=== PATIENT | female | born 1990 | race African-American/Black ===

== ENCOUNTER → 2017-02-05 | Outpatient (CLI) | payer BC ==
[~2017-02-05] MED LIST: DOXY100C PO; HYDR-3516 PO; METH-703 PO
[2017-02-05 11:12] LABS: HEMATOCRIT 29.7 % (35.0-46.0); MEAN CELL VOLUME 71.1 FL (80.0-100.0); MEAN CORPUSCULAR HEMOGLOBIN 22.7 PG (27.0-34.0); PLATELET COUNT 178 TH/MM3 (150-450); RED BLOOD COUNT 4.18 MIL/MM3 (4.00-5.30); RED CELL DISTRIBUTION WIDTH 14.9 % (11.6-17.2); WHITE BLOOD COUNT 3.7 TH/MM3 (4.0-11.0)
[2017-02-05 11:17] LABS: REVIEW FLAG FINAL
== END ==
LOC: CPRE 10:30 → EDUNIT# 11:00
PROVIDERS: ATTEND Obstetrics & Gynecology
DX: Z01.812 Encounter for preprocedural laboratory examination (principal)
CPT/HCPCS: 36415; 85027; 86900; 86901

== ENCOUNTER → 2017-02-06 | Day surgery (SDC) | payer BC ==
[~2017-02-06] VITALS: Ht 172.7 cm; Wt 62.5 kg
[~2017-02-06] MED LIST changes: +ACETAMINOPHEN/HYDROcodone 325 MG/5 MG TAB ONE; +ACETAMINOPHEN/HYDROcodone 325 MG/5 MG TAB PO PRN; +CHLORHEXIDINE GLUCONATE 2 % 1 PACK (2 CLOTHS) TOPICAL PRN; +INSULIN HUMAN REGULAR 1,000 UNITS/10 ML VIAL SQ PRN; +KETOROLAC TROMETHAMINE 60 MG/2 ML (IM) VIAL IM ONE; +LACTATED RINGER'S 1000 ML INJ 1,000 ML IV ONE; +LACTATED RINGER'S 1000 ML IV PRN; +MIDAZOLAM HCL 2 MG/2 ML VIAL ONE; +ONDANSETRON HCL 4 MG/2 ML VIAL IV PUSH ONE; +POVIDONE IODINE 5% (ANTISEPSIS KIT) 4 APPLICATIONS EACH NARE PRN; +PROPOFOL 200 MG/20 ML AMP IV ONE; +SODIUM CHLORID 0.9% 500 ML IV PRN
[2017-02-06 14:52] VITALS: BP 98/59; PULSE 59; RESP 18; TEMP 97.7; O2SAT 100
--- NOTE | 2017-02-11 14:47 | MP ---
cc: Hernandez AMBRIZ MD DATE OF SURGERY: 02/06/2017 PREOPERATIVE DIAGNOSIS Missed at 8 weeks. POSTOPERATIVE DIAGNOSIS Missed at 8 weeks. PROCEDURE Dilation, evacuation of the uterus. ANESTHESIA General. SURGEON Hernandez Ambriz MD FINDINGS The uterus was 12 weeks' size, no adnexal masses. The cervix was closed. The POC looked normal grossly and was sent for pathology. COMPLICATIONS None. COUNTS Counts were correct. ESTIMATED BLOOD LOSS 200 ccs. FLUIDS Crystalloids. CONDITION The patient tolerated the procedure well and went to the recovery room in good condition. PROCEDURE IN DETAIL The patient was taken to the operating room, identified by name band and verbally and given a general anesthetic. She was prepped and draped in the dorsal lithotomy position for a routine vaginal surgery. The urinary bladder was drained and examination under anesthesia was carried out after she was prepped and draped. Once the exam was done the weighted speculum was placed in the vagina. The anterior lip of the cervix was grasped with a single-tooth tenaculum. The cervix was serially dilated up to 8 mm and a suction cannula was then placed into the uterus. The entire uterus contents were removed under gentle suction and that was followed by a sharp curettage. She tolerated the procedure well. All instruments were removed. She went to the recovery room in good condition. She did receive Ketorolac in the operating theater. Hernandez Ambriz MD RJV/TLL /11:26 AM /2:29 PM
== END | disposition home or self-care (01) ==
LOC: HSDC 10:46
PROVIDERS: ATTEND Obstetrics & Gynecology
DX: O02.1 Missed abortion (principal); Z3A.08 8 weeks gestation of pregnancy; J45.909 Unspecified asthma, uncomplicated; G43.909 Migraine, unspecified, not intractable, without status migrainosus; Z87.891 Personal history of nicotine dependence
CPT/HCPCS: 01965; 36415; 59820; 85027; 86900; 86901; 88305; J1885; J2250; J2405; J3010; J7120

== ENCOUNTER 2017-02-12 04:28 | Observation (INO) | payer BC, MEDICAID ==
[~2017-02-12] VITALS: Ht 172.7 cm; Wt 64.7 kg
[2017-02-12] VITALS (12 sets, daily range): BP systolic 99–152; BP diastolic 56–84; PULSE 50–86; RESP 14–18; TEMP 97.7–99.1; O2SAT 98–100
[2017-02-12] MEDS ORDERED: HYDR-3516 PO (04:55)
--- NOTE | 2017-02-12 05:06 | PD ---
HPI Chief Complaint: Abdominal Pain Time Seen by Provider: 05:06 Travel History International Travel<30 days: No Contact w/Intl Traveler<30days: No Traveled to known affect area: No History of Present Illness HPI 26-year-old female presents to the emergency department from [facility] for evaluation of vaginal bleeding 5 days post a D&C performed at [facility] by her COMMERCIAL LENDING ASSISTANT Dr Ambriz this past Thursday. Patient has had suprapubic pain and right lower quadrant pain. Patient reportedly had a temperature elevation of 102F yesterday she's had some nausea and vomiting. Patient has been passing blood vaginally with blood clots states that she has been changing sanitary pads approximate 2 every hour. Patient has had some constipation she thinks related to her pain medication. Patient underwent CT abdomen and pelvis that identified a normal appendix; small amount of free fluid in the pelvis; distended uterine cavity with complex material measuring up to 4.8 cm could be secondary to retained trap debris/blood products however retained products of conception cannot because completely ruled out. Patient also went pelvic ultrasound that identified persistently thickened heterogeneous endometrium measuring 37 millimeters with recent miscarriage at 12 weeks thickened heterogeneous attenuation without significant internal vascularity was consistent with extensive blood product and hematoma small amount of free fluid in the cul-de-sac. Patient's total white cell count was 5500 however her hemoglobin was 7.7 this was reportedly down from pre-procedure hemoglobin of 10.5. Due to ongoing bleeding and drop in hemoglobin patient did undergo transfusion of 1 unit of packed red cells, patient's die repairer forging was contacted for transfer to [place] for ongoing management and intervention. PFSH Past Medical History Narrative Medical Lupus D&C1 ab1; no tobacco; nursing notes reviewed Cancer: No Diabetes: No Endocrine: No Hepatitis: No Immune Disorder: No Medical other: Yes (lupus) Psychiatric: No Thyroid Disease: No Tetanus Vaccination: Unknown ?: Unknown Past Surgical History AICD: No Gynecologic Surgery: Yes (DNC one week ago) Joint Replacement: No Pacemaker: No Social History Alcohol Use: No Tobacco Use: No Substance Use: No Allergies-Medications (Allergen,Severity, Reaction): Coded Allergies: No Known Allergies (Unverified , 02/12/17) Reported Meds & Prescriptions Reported Meds & Active Scripts Active Reported Hydrocodone-Acetaminophen 5-325 mg Tab 1 Tab PO Q4H PRN Review of Systems Except as stated in HPI: all other systems reviewed are Neg General / Constitutional: Positive: Fever (102 ) HENT: No: Headaches Cardiovascular: No: Chest Pain or Discomfort Respiratory: No: Shortness of Breath Gastrointestinal: Positive: Abdominal Pain Genitourinary: Positive: Vaginal Bleeding Musculoskeletal: No: Pain Skin: No Rash Neurologic: No: Tremor Hematologic/Lymphatic: No: Lymph Node Enlargement Physical Exam Narrative GENERAL: Well-developed well-nourished female in no acute distress no respiratory distress; temperature 98.4F heart rate 62 monitored sinus rhythm respiratory rate 14 unlabored blood pressure 136/81 and room air O2 saturation 100% SKIN: Warm and dry. HEAD: Normocephalic. EYES: No scleral icterus. No injection or drainage. NECK: Supple, trachea midline. No JVD or lymphadenopathy. CARDIOVASCULAR: Regular rate and rhythm without murmurs, gallops, or rubs. RESPIRATORY: Breath sounds equal bilaterally. No accessory muscle use. GASTROINTESTINAL: Abdomen soft, suprapubic and right lower quadrant tenderness to palpation without guarding or rebound nondistended. Pelvic exam small amount of blood at the introitus speculum exam shows clotted blood; bimanual exam deferred MUSCULOSKELETAL: No cyanosis, or edema. BACK: Nontender without obvious deformity. No CVA tenderness. Data Data Last Documented VS Vital Signs Date Time Temp Pulse Resp B/P (MAP) Pulse Ox O2 Delivery O2 Flow Rate FiO2 02/12/17 04:40 98.4 62 14 136/81 (99) 100 Orders Orders NPO (02/12/17 05:06) Complete Blood Count With Diff (02/12/17 05:06) Act Partial Throm Time (Ptt) (02/12/17 05:06) Prothrombin Time / Inr (Pt) (02/12/17 05:06) Type And Screen (02/12/17 05:06) Red Blood Cells (Rbc) (02/12/17 05:06) Blood Product Administration (02/12/17 05:06) Sodium Chlor 0.9% 250 Ml Inj (Ns 250 Ml (02/12/17 05:15) Sodium Chlor 0.9% 1000 Ml Inj (Ns 1000 M (02/12/17 05:15) Labs Laboratory Tests Test 02/12/17 05:15 White Blood Count 5.6 TH/MM3 Red Blood Count 3.76 MIL/MM3 Hemoglobin 9.0 GM/DL Hematocrit 27.2 % Mean Corpuscular Volume 72.3 FL Mean Corpuscular Hemoglobin 23.9 PG Mean Corpuscular Hemoglobin Concent 33.0 % Red Cell Distribution Width 16.3 % Platelet Count 166 TH/MM3 Mean Platelet Volume 9.7 FL Neutrophils (%) (Auto) 73.9 % Lymphocytes (%) (Auto) 19.6 % Monocytes (%) (Auto) 5.9 % Eosinophils (%) (Auto) 0.2 % Basophils (%) (Auto) 0.4 % Neutrophils # (Auto) 4.1 TH/MM3 Lymphocytes # (Auto) 1.1 TH/MM3 Monocytes # (Auto) 0.3 TH/MM3 Eosinophils # (Auto) 0.0 TH/MM3 Basophils # (Auto) 0.0 TH/MM3 CBC Comment AUTO DIFF Prothrombin Time 10.4 SEC Prothromb Time International Ratio 0.9 RATIO Activated Partial Thromboplast Time 28.9 SEC MDM Medical Decision Making Medical Screen Exam Complete: Yes Emergency Medical Condition: Yes Medical Record Reviewed: Yes (02/05/17 hemoglobin 9.5) Interpretation(s) CBC & BMP Diagram 02/12/17 05:15 Vital Signs Date Time Temp Pulse Resp B/P (MAP) Pulse Ox O2 Delivery O2 Flow Rate FiO2 02/12/17 04:40 98.4 62 14 136/81 (99) 100 Differential Diagnosis Anemia retained products of conception Narrative Course 26-year-old female presents with ongoing vaginal bleeding anemia and enlarged uterus with possible retained hematoma versus products of conception patient was transferred from [facility] to her excepting managing physician Dr. Ambriz patient has received one unit of packed red cells for hemoglobin of 7.7 Physician Communication Physician Communication call placed to Dr Ambriz --discussed with Dr Cody--to Dr Ambriz Diagnosis Primary Impression: Vaginal bleeding Additional Impression: Anemia Admitting Information Admitting Physician Requests: Frances Ruffin MD Feb 12, 2017 05:06
[2017-02-12 05:22] LABS: AUTOMATED NEUTROPHIL # 4.1 TH/MM3 (1.8-7.7); BASOPHIL % 0.4 % (0.0-2.0); EOSINOPHIL % 0.2 % (0.0-4.0); HEMATOCRIT 27.2 % (35.0-46.0); LYMPH % 19.6 % (9.0-44.0); LYMPHOCYTE # 1.1 TH/MM3 (1.0-4.8); MEAN CELL VOLUME 72.3 FL (80.0-100.0); MEAN CORPUSCULAR HEMOGLOBIN 23.9 PG (27.0-34.0); MONO % 5.9 % (0.0-8.0); NEUT % 73.9 % (16.0-70.0); PLATELET COUNT 166 TH/MM3 (150-450); RED BLOOD COUNT 3.76 MIL/MM3 (4.00-5.30); RED CELL DISTRIBUTION WIDTH 16.3 % (11.6-17.2); WHITE BLOOD COUNT 5.6 TH/MM3 (4.0-11.0)
[2017-02-12 05:27] LABS: HEMO FLAGS AUTO DIFF
[2017-02-12 05:34] LABS: APTT (PATIENT) 28.9 SEC (24.3-30.1); INTERNATIONAL NORMALIZED RATIO 0.9 RATIO; PROTHROMBIN TIME - PATIENT 10.4 SEC (9.8-11.6)
[2017-02-12] MEDS ORDERED: SODIUM CHLORIDE 0.9% FLUSH 10 ML FLUSH IVF PRN (05:45)
[2017-02-12 06:12] LABS: ACANTHOCYTES OCC (NORMAL); KERATOCYTES OCC (NORMAL); OVALOCYTES 2+ (NORMAL); PLATELET ESTIMATE SMEAR NORMAL (NORMAL); PLATELET MORPHOLOGY NORMAL (NORMAL); SCAN/DIFF AUTO DIFF CONFIRMED
[2017-02-12] MEDS: SODIUM CHLOR 0.9% 1000 ML INJ 1,000 ML IV SCH (07:17)
[2017-02-12] MEDS: SODIUM CHLORIDE 0.9% FLUSH 10 ML FLUSH IV FLUSH SCH (07:18)
[2017-02-12] MEDS: SODIUM CHLOR 0.9% 250 ML INJ 250 ML IV ONE ×2 (07:28→09:11)
[2017-02-12] MEDS: LACTATED RINGER'S 1000 ML INJ 1,000 ML IV SCH ×2 (07:53→12:04)
[2017-02-12] MEDS: ONDANSETRON HCL 4 MG/2 ML VIAL IV PUSH PRN ×2 (07:58→23:52)
[2017-02-12] MEDS ORDERED: HYDROmorphone HCL PF 1 MG/ML VIAL IV PUSH PRN (08:00)
[2017-02-12] MEDS: BISACODYL 10 MG SUPP RECTAL SCH ×2 (08:00→21:00)
[2017-02-12] MEDS ORDERED: MISOPROSTOL 200 MCG TAB PO ONE ×2 (08:00→18:00)
--- NOTE | 2017-02-12 08:31 | MH ---
cc: Hernandez MORELOS MD DATE OF ADMISSION: 02/12/2017 HISTORY OF PRESENT ILLNESS Ms. Tirado is an 26-year-old black female, para 0-0-2-0, who came to the office for OB care. She was seen on and noted to have intrauterine demise at approximately 8 weeks. She was taken to the operating room the next day and had an uneventful dilation, evacuation of the uterus without any complications. She had a temperature of 102 yesterday and then began passing large amounts of blood and clots. She was changing a pad every 2 hours. Her hemoglobin dropped from 10 to 7 and she went to the emergency room in [place] where she underwent a CT of the abdomen and pelvis and ultrasound and got 1 unit of blood. They then called me and I recommended transfer here, so I could take care of her. She has not had further fever or chills but she has been experiencing some nausea, vomiting and increasing pain. PAST OB HISTORY She is para 0-0-2-0. She had one SAB, one TAB and she had a D&E last Thursday, so she is 3. PAST MEDICAL HISTORY Her past medical history is remarkable for: 1. Asthma. 2. Migraines and headache. PAST SURGICAL HISTORY Her past surgical history is remarkable for D&C x 2. MEDICATION Her current medications are [place] 5/325 one p.o. q.4 hours p.r.n. pain. ALLERGIES No known drug allergies. SOCIAL HISTORY She does not smoke, drink or take drugs. REVIEW OF SYSTEMS GENERAL: She has had some fever yesterday, no further fevers or chills. HEENT: No headaches, no visual changes. CARDIOVASCULAR: No chest pain. No discomfort. RESPIRATORY: No shortness of breath. No wheezing. GI: She has constipation and nausea and vomiting. : She has moderate vaginal bleeding. The bleeding is minimal now. MUSCULOSKELETAL: No pain. No joint pain. PHYSICAL EXAMINATION GENERAL: A well-developed, well-nourished female who looks mildly ill. VITAL SIGNS: Her temperature is 98.4, heart rate is 62. Respirations are 14. Her blood pressure is 136/81. Her O2 sat is 100 on room air. HENT: Normocephalic, atraumatic. NECK: Supple. Trachea is in the midline. No thyromegaly or adenopathy. EYES: No icterus. HEART: Heart has a regular rate and rhythm without murmur or gallop. RESPIRATORY: Breath sounds are equal bilaterally. LUNGS: The lungs are clear. She has good air movement. ABDOMEN: Her abdomen is soft and suprapubically she is slightly warm and tender. There is no guarding. There is no rebound. PELVIC: There is a small amount of bleeding. The bimanual reveals mildly tender uterus which feels globular. MUSCULOSKELETAL: She has no clubbing, cyanosis or edema. LABORATORY DATA Her laboratory workup reveals a white count of 5.6, hemoglobin of 9, hematocrit 27.2. IMAGING STUDIES Her CT scan, I have reviewed personally, reveals that she does have some tissue versus hematoma of the uterus. ASSESSMENT/PLAN 1. Postabortal endometritis with hematometra. I would go ahead and admit her to the hospital, give her some IV fluids, take care of her nausea and pain with medication. I will give her a dose of Cytotec to see if we can get the blood products out of her uterus. She does have asthma but it is very mild and lungs right now are extremely clear with good air movement, I do not expect any problems. 2. Constipation. Will go ahead and give her some Dulcolax suppositories. 3. Acute blood loss anemia status post a dilation and evacuation. Will go ahead and give her one more unit of blood and I expect that she is going to have a little bit more bleeding as we clean this out. I discussed this plan with the patient and her significant other that is with her. R. MD JANA Malik/JUSTINO /7:45 AM /7:57 AM
[2017-02-12] MEDS ORDERED: cefTRIAXone INJ 1,000 MG in SODIUM CHLORIDE 0.9% INJ 100 ML IV ONE (09:00)
--- NOTE | 2017-02-12 17:46 | HHI.PR ---
Subjective Remarks Pain and bleeding are better. Feeling better. No BM yet. Objective Vital Signs Date Time Temp Pulse Resp B/P (MAP) Pulse Ox O2 Delivery O2 Flow Rate FiO2 02/12/17 13:26 103/59 (74) 02/12/17 11:49 98.7 50 16 104/63 98 02/12/17 09:53 98.7 50 16 107/64 100 02/12/17 09:35 98.0 56 16 99/58 (72) 100 02/12/17 09:20 98.0 54 16 100/56 100 02/12/17 09:05 98.1 58 16 104/59 100 02/12/17 08:24 17 02/12/17 07:36 02/12/17 07:10 98.1 86 17 152/84 (106) 99 Room Air 02/12/17 07:10 17 02/12/17 05:58 100 02/12/17 04:40 98.4 62 14 136/81 (99) 100 I/O 02/11/17 02/11/17 02/11/17 02/12/17 02/12/17 02/12/17 07:00 15:00 23:00 07:00 15:00 23:00 Intake Total 730 ml Balance 730 ml Intake Oral 200 ml IV Total 100 ml Packed Cells 400 ml Blood Product IV Normal Saline Flush 30 ml # Voids 1 # Bowel Movements 1 Result Diagram: 02/12/17 0515 Other Results WDWN in NAD Chest clear CV RRR Abd is soft and less tender. Assessment and Plan Assessment and Plan Post abortaln endometritis with bleeding will give more cytotec tonite and see if we can expel the uterine contents will start po meds for pain check blood count in am due to anemia... she got 2 units PRBC and has bleed with 5 pads today. Anemia Will start fe soon. Constipation will order a fleets enema today. Check in am and consider d/c home tomorrow Hernandez Ambriz MD Feb 12, 2017 17:46
[2017-02-12] MEDS ORDERED: SOD PHOSPHATE/SOD BIPHOSPHATE (ADULT) ENEMA 133ML RECTAL ONE (18:00)
[2017-02-12] MEDS ORDERED: ZOLPIDEM TARTRATE 5 MG TAB PO PRN (18:00)
[2017-02-13 00:02] VITALS: BP 119/74; PULSE 49; RESP 17; TEMP 99; O2SAT 100
[2017-02-13 04:00] VITALS: BP 103/64; PULSE 50; RESP 17; TEMP 97.9; O2SAT 100
[2017-02-13 06:21] LABS: AUTOMATED NEUTROPHIL # 2.2 TH/MM3 (1.8-7.7); BASOPHIL % 0.6 % (0.0-2.0); EOSINOPHIL % 0.8 % (0.0-4.0); HEMATOCRIT 28.2 % (35.0-46.0); HEMO FLAGS DIFF FINAL; LYMPH % 28.5 % (9.0-44.0); MEAN CELL VOLUME 73.6 FL (80.0-100.0); MEAN CORPUSCULAR HGB CONC 32.5 % (32.0-36.0); MONO % 9.5 % (0.0-8.0); NEUT % 60.6 % (16.0-70.0); PLATELET COUNT 162 TH/MM3 (150-450); RED BLOOD COUNT 3.84 MIL/MM3 (4.00-5.30); RED CELL DISTRIBUTION WIDTH 16.8 % (11.6-17.2); WHITE BLOOD COUNT 3.6 TH/MM3 (4.0-11.0)
[2017-02-13] MEDS ORDERED: MISOPROSTOL 200 MCG TAB PO ONE (07:15)
[2017-02-13 08:00] VITALS: BP 108/75; PULSE 49; RESP 18; TEMP 98.4; O2SAT 100
--- NOTE | 2017-02-13 08:19 | HHI.PR ---
Subjective Remarks Feeling better this morning. Bleeding is much less No problems breathing with the Cytotec The pain is well controlled Objective Vital Signs Date Time Temp Pulse Resp B/P (MAP) Pulse Ox O2 Delivery O2 Flow Rate FiO2 02/13/17 04:00 97.9 50 17 103/64 (77) 100 02/13/17 00:02 99.0 49 17 119/74 (89) 100 02/12/17 20:01 97.7 50 16 116/70 (85) 99 02/12/17 15:05 99.1 50 18 123/81 (95) 99 02/12/17 13:26 103/59 (74) 02/12/17 11:49 98.7 50 16 104/63 98 02/12/17 09:53 98.7 50 16 107/64 100 02/12/17 09:35 98.0 56 16 99/58 (72) 100 02/12/17 09:20 98.0 54 16 100/56 100 02/12/17 09:05 98.1 58 16 104/59 100 02/12/17 08:24 17 I/O 02/12/17 02/12/17 02/12/17 02/13/17 02/13/17 02/13/17 07:00 15:00 23:00 07:00 15:00 23:00 Intake Total 730 ml 600 ml 720 ml Balance 730 ml 600 ml 720 ml Intake Oral 200 ml 600 ml 720 ml IV Total 100 ml Packed Cells 400 ml Blood Product IV Normal Saline Flush 30 ml # Voids 1 1 1 # Bowel Movements 1 Result Diagram: 02/13/17 0609 Other Results Resting comfortably in bed Chest is clear to auscultation Heart slightly bradycardic but regular rhythm Abdomen is soft much less tender no rebound Extremities there is no clubbing cyanosis or edema the calfs are nontender Assessment and Plan Assessment and Plan Status post dilation and evacuation for a missed Now with retained blood in the uterus. We have tried a low-dose Cytotec to spelled these products however with her history of asthma I'm concerned about using higher dose Cytotec. She has not had any asthma problems since high school and she has had no problem with the 200 g dose. This morning we will make her nothing by mouth give her a 400 g dose of Cytotec and do a follow-up ultrasound to see if there is any retained blood clots in the uterus if there is still retained blood in the uterus I will go ahead and take her to the operating room so afternoon. I have answered all the questions of the patient and her mother her mother is flew in from [place]. She had a lot of questions about the care of her daughter in this hospital as well as [facility]. I discussed the plan with the patient and her family in great detail and I plan to send her home on some antibiotics and either Cytotec or Methergine to keep that uterus well contracted. The mother wants an ultrasound performed operating room post procedure to make sure the uterus is clean I told her this is not really the standard of care but I will order that if we go to the operating room. Anemia go ahead and give her some Phenergan fear today and we'll start iron in the near future. Lupus the mother informed me today that she does have lupus and I will obtain those records from her natural sciences professor in the near future. Before another I will have a conversation with her about lupus in Discussed Condition With Discussed the condition plan and possible outcomes with the patient her mother and significant other Hernandez Ambriz MD Feb 13, 2017 08:19
[2017-02-13] MEDS ORDERED: ACETAMINOPHEN/HYDROcodone 325 MG/5 MG TAB PO PRN (08:45)
[2017-02-13] MEDS: BISACODYL 10 MG SUPP RECTAL SCH (08:58)
[2017-02-13] MEDS ORDERED: IRON SUCROSE INJ 200 MG in SODIUM CHLORIDE 0.9% INJ 100 ML IV ONE (09:00)
[2017-02-13] MEDS: SODIUM CHLORIDE 0.9% FLUSH 10 ML FLUSH IV FLUSH SCH (09:00)
[2017-02-13 09:40] VITALS: O2SAT 95
[2017-02-13] MEDS: SODIUM CHLOR 0.9% 1000 ML INJ 1,000 ML IV SCH (11:15)
[2017-02-13 12:00] VITALS: BP 93/65; PULSE 49; RESP 18; TEMP 98.2; O2SAT 100
[2017-02-13] MEDS: LACTATED RINGER'S 1000 ML INJ 1,000 ML IV SCH (12:59)
[2017-02-13] MEDS ORDERED: ACETAMINOPHEN 1000 MG/100 ML 0 ML IV ONE (13:23)
--- NOTE | 2017-02-13 13:46 | RADRPT ---
EXAM DATE/TIME: 02/13/2017 12:45 [place] COMPARISON: No previous studies available for comparison. INDICATIONS : Retained products of conception. MEDICAL HISTORY : Recent miscarriage. Asthma. Lupus. SURGICAL HISTORY : Recent D&C. ENCOUNTER: Initial ACUITY: 1 week PAIN SCORE: 5/10 LOCATION: Bilateral pelvis MEASUREMENTS: UTERUS: 8.9 x 4.3 x 6.2 cm ENDOMETRIAL STRIPE: 14 mm RIGHT OVARY: 3.6 x 1.9 x 1.6 cm LEFT OVARY: 3.4 x 2.0 x 1.6 cm FINDINGS: UTERUS: The myometrium is normal in appearance. There is an area of low attenuation in the superior aspect of the endometrial cavity measuring about 2.2 x 0.9 cm. Probably represents a small amount of fluid. Th e endometrium otherwise appears normal in appearance. Note is made of a small nabothian cyst at the l evel of the cervix. RIGHT OVARY: Ovary contains no mass or significant cystic lesion. LEFT OVARY: Ovary contains no mass or significant cystic lesion. MISCELLANEOUS: There is a small amount of free fluid within the low pelvis. CONCLUSION: 1. Small area of decreased echogenicity in the superior aspect of the endometrial cavity measuring ap proximately 2.2 x 0.9 CM. This probably represents a small amount of fluid within the endometrial cav ity. No definite abnormal soft tissue is seen. 2. There is free fluid within the pelvis. Ze Ramirez MD on February 13, 2017 at 13:42 Board Certified Radiologist. This report was verified electronically.
[2017-02-13] MEDS ORDERED: FAMOTIDINE 20 MG/2 ML VIAL ONE (13:52)
[2017-02-13] MEDS ORDERED: cefTRIAXone INJ 1,000 MG in SODIUM CHLORIDE 0.9% INJ 100 ML IV ONE (15:00)
[2017-02-13] MEDS ORDERED: DOXYCYCLINE HYCLATE 100 MG CAP PO ONE (15:00)
[2017-02-13] MEDS ORDERED: METHYLERGONOVINE MALEATE 0.2 MG TAB PO ONE (15:00)
[2017-02-13 16:00] VITALS: BP 105/72; PULSE 50; RESP 18; TEMP 98.2; O2SAT 97
--- NOTE | 2017-02-13 16:13 | HHI.PR ---
Subjective Remarks I'm doing much better this afternoon the pain is well controlled and the bleeding is small in amount I had my ultrasound this afternoon however the result I had a nice bowel movement. Objective Vital Signs Date Time Temp Pulse Resp B/P (MAP) Pulse Ox O2 Delivery O2 Flow Rate FiO2 02/13/17 12:00 98.2 49 18 93/65 (74) 100 02/13/17 09:40 95 21 02/13/17 08:00 98.4 49 18 108/75 (86) 100 02/13/17 04:00 97.9 50 17 103/64 (77) 100 02/13/17 00:02 99.0 49 17 119/74 (89) 100 02/12/17 20:01 97.7 50 16 116/70 (85) 99 I/O 02/12/17 02/12/17 02/12/17 02/13/17 02/13/17 02/13/17 07:00 15:00 23:00 07:00 15:00 23:00 Intake Total 730 ml 600 ml 720 ml 648 ml Balance 730 ml 600 ml 720 ml 648 ml Intake Oral 200 ml 600 ml 720 ml IV Total 100 ml 648 ml Packed Cells 400 ml Blood Product IV Normal Saline Flush 30 ml # Voids 1 1 1 # Bowel Movements 1 Result Diagram: 02/13/17 0609 Other Results Abdomen is soft and much less tender Extremities there is no clubbing cyanosis or edema Assessment and Plan Assessment and Plan Post abortal endometritis her bleeding now is well controlled her pain is well controlled I reviewed the ultrasound pictures with the health tech outside of the room and her endometrial thickness at the most is 14 mm. Her bleeding is now well controlled and I feel she can go home instead of using the Cytotec I will change her over to Methergine which we did this morning and she seems to be doing well with this. I will send her home now with strict instructions to call me if there are any further problems bleeding. I will send her home on doxycycline and Methergine and we'll start iron by mouth in the next couple days. She did get her IV iron today and her IV antibiotics. Hernandez Ambriz MD Feb 13, 2017 16:13
[2017-02-13] MEDS ORDERED: DOXY100C PO (16:16)
[2017-02-13] MEDS ORDERED: METH-703 PO (16:16)
--- NOTE | 2017-02-13 16:17 | HHI.DCPOC ---
Discharge Care Plan Diagnosis: (1) Anemia (2) Vaginal bleeding Report Symptoms to Your Doctor -Temperature above 100.5 degrees -Redness, of incision or excessive or foul smelling drainage -Unusual pain or calf pain -Increased vaginal bleeding -Painful or difficulty urinating -Feelings of extreme sadness or anxiety after 2 weeks Goals to Promote Your Health * To prevent worsening of your condition and complications * To maintain your health at the optimal level Directions to Meet Your Goals Take your medications as prescribed Follow your dietary instruction Follow activity as directed Ensure plenty of rest for recovery Drink fluids for hydration Keep your appointments as scheduled Take your immunizations and boosters as scheduled If your symptoms worsen call your PCP, if no PCP go to Urgent Care Center or Emergency Room Smoking is Dangerous to Your Health. Avoid second hand smoke Call the 24-hour crisis hotline for domestic abuse at Hernandez Ambriz MD Feb 13, 2017 16:17
== END 2017-02-13 19:57 | disposition home or self-care (01) ==
LOC: NEPC 04:28 → NEDA 05:44 → NEPGCP 09:49 → N06B 15:18
PROVIDERS: ADMIT Obstetrics & Gynecology; ATTEND Obstetrics & Gynecology
DX: D62 Acute posthemorrhagic anemia (principal); N71.9 Inflammatory disease of uterus, unspecified; N85.7 Hematometra; N85.2 Hypertrophy of uterus; J45.909 Unspecified asthma, uncomplicated; K59.00 Constipation, unspecified
CPT/HCPCS: 36430; 76856; 85025; 85610; 85730; 86850; 86900; 86901; 86920; 96361; 96365; 96367; 96375; 96376; 99285; G0378; J0696; J1170; J1756; J2405; J7030; J7050; J7120; P9016; J0131

== ENCOUNTER 2017-10-18 23:02 | Emergency (ER) | payer BC, MEDICAID ==
[~2017-10-18] VITALS: Ht 167.6 cm; Wt 69.0 kg
[~2017-10-18 23:02] MED LIST changes: -ACETAMINOPHEN/HYDROcodone 325 MG/5 MG TAB ONE; -ACETAMINOPHEN/HYDROcodone 325 MG/5 MG TAB PO PRN; -CHLORHEXIDINE GLUCONATE 2 % 1 PACK (2 CLOTHS) TOPICAL PRN; -INSULIN HUMAN REGULAR 1,000 UNITS/10 ML VIAL SQ PRN; -KETOROLAC TROMETHAMINE 60 MG/2 ML (IM) VIAL IM ONE; -LACTATED RINGER'S 1000 ML INJ 1,000 ML IV ONE; -LACTATED RINGER'S 1000 ML IV PRN; -MIDAZOLAM HCL 2 MG/2 ML VIAL ONE; -ONDANSETRON HCL 4 MG/2 ML VIAL IV PUSH ONE; -POVIDONE IODINE 5% (ANTISEPSIS KIT) 4 APPLICATIONS EACH NARE PRN; -PROPOFOL 200 MG/20 ML AMP IV ONE; -SODIUM CHLORID 0.9% 500 ML IV PRN
[2017-10-18] MEDS ORDERED: PREN0.01 (23:14)
[2017-10-18 23:32] VITALS: BP 120/56; PULSE 65; RESP 20; TEMP 98.7; O2SAT 100
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
== END 2017-10-19 01:10 | disposition home or self-care (01) ==
LOC: NEPC 23:02
DX: O9A.211 Injury, poisoning and certain other consequences of external causes complicating pregnancy, first trimester (principal); S30.1XXA Contusion of abdominal wall, initial encounter; W50.0XXA Accidental hit or strike by another person, initial encounter; Y92.129 Unspecified place in nursing home as the place of occurrence of the external cause; Z3A.12 12 weeks gestation of pregnancy
CPT/HCPCS: 99282